=== PATIENT | male | born 1960 | race African-American/Black ===

== ENCOUNTER 2017-07-06 20:03 | Emergency (ER) | payer OTHER ==
[~2017-07-06] VITALS: Ht 170.2 cm; Wt 82.5 kg
[2017-07-06 20:23] LABS: HEMATOCRIT 32.4 % (38.0-50.0); MCH 26.6 PG (29.0-34.0); MCHC 32.7 G/DL (30.0-36.0); MCV 81.4 FL (86-99); MEAN PLAT.VOLUME 9.4 uM^3 (9.0-12.4); NRBC (%) 1.2 /100 WBC (0-0); PLATELET COUNT 381 K/uL (156-360); RBC DIS.WIDTH-CV 14.5 % (11.8-14.6); RBC DIS.WIDTH-SD 42.2 % (39-53); RED BLOOD COUNT 3.98 M/uL (4.00-5.50); WHITE BLOOD COUNT 12.5 K/uL (4.1-10.2)
[2017-07-06 20:51] LABS: TROP-I INTERPRETATION NEGATIVE; TROPONIN-I < 0.01 ng/mL (0.0-0.30)
[2017-07-06 21:07] LABS: CHLORIDE 104 mEq/L (99-109); POTASSIUM 3.9 mEq/L (3.7-5.4); SODIUM 137 mEq/L (136-147)
[2017-07-06 21:09] LABS: GLUCOSE 177 mg/dL (70-99)
[2017-07-06 21:10] LABS: ANION GAP 15 MEQ/L (2-14)
[2017-07-06 21:13] LABS: GFR ESTIMATE (CALCULATED) > 59 mL/min/; UREA NITROGEN (BUN) 30 mg/dL (9-23)
[2017-07-07 01:14] VITALS: BP 125/90
== END 2017-07-07 01:16 | disposition short-term general hospital (02) ==
LOC: EDBD 20:03 → EME 20:03
DX: I50.9 Heart failure, unspecified (principal); R00.0 Tachycardia, unspecified; Z87.891 Personal history of nicotine dependence
CPT/HCPCS: 71020; 80048; 83880; 84484; 85027; 93005; 99281; 99285; J1940

== ENCOUNTER 2017-12-04 23:40 | Inpatient (IN) | payer OTHER ==
[~2017-12-04] VITALS: Ht 170.2 cm; Wt 72.5 kg
[2017-12-05 00:57] LABS: BASOPHIL (%) 0.5 % (0-1); EOSINOPHIL (%) 0.5 % (0-5); HEMOGLOBIN 14.1 G/DL (12.5-16.6); IMMATURE GRANULOCYTE (%) 0.5 % (0.0-0.7); LYMPHOCYTE (%) 11.4 % (15-42); LYMPHOCYTE COUNT 0.9 K/uL (1.0-2.8); MCH 25.2 PG (29.0-34.0); MCHC 32.8 G/DL (30.0-36.0); MCV 76.9 FL (86-99); MONOCYTE (%) 7.3 % (3-12); MONOCYTE COUNT 0.6 K/uL (0-0.8); NEUTROPHIL (%) 79.8 % (45-76); NEUTROPHIL COUNT 6.2 K/uL (1.8-6.4); PLATELET COUNT 355 K/uL (156-360); RBC DIS.WIDTH-CV 14.6 % (11.8-14.6); RBC DIS.WIDTH-SD 40.8 % (39-53); RED BLOOD COUNT 5.59 M/uL (4.00-5.50); WHITE BLOOD COUNT 7.8 K/uL (4.1-10.2)
[2017-12-05 01:11] LABS: CHLORIDE 105 mEq/L (99-109); POTASSIUM 3.9 mEq/L (3.7-5.4); SODIUM 138 mEq/L (136-147)
[2017-12-05 01:12] LABS: GLUCOSE 87 mg/dL (70-99)
[2017-12-05 01:15] LABS: ERTH.SED.RATE 66 MM/HR (0-20)
[2017-12-05 01:16] LABS: CREATININE 0.8 mg/dL (0.6-1.3); GFR ESTIMATE (CALCULATED) > 59 mL/min/ (58.99-99999)
[2017-12-05 01:17] LABS: UREA NITROGEN (BUN) 10 mg/dL (9-23)
[2017-12-05 01:19] LABS: CREATINE KINASE 214 IU/L (1-294)
[2017-12-05 01:22] LABS: TROP-I INTERPRETATION NEGATIVE; TROPONIN-I < 0.01 ng/mL (0.0-0.30)
[2017-12-05 01:41] LABS: C-REACTIVE PROTEIN 34.4 MG/L (0-10)
[2017-12-05 09:14] LABS: TROP-I INTERPRETATION NEGATIVE; TROPONIN-I < 0.01 ng/mL (0.0-0.30)
[2017-12-05 15:02] LABS: TROP-I INTERPRETATION NEGATIVE; TROPONIN-I 0.01 ng/mL (0.0-0.30)
[2017-12-05 17:24] VITALS: BP 135/92
[2017-12-05 19:20] VITALS: BP 146/96
[2017-12-05 23:57] VITALS: BP 121/82
[2017-12-06 03:59] VITALS: BP 133/77
[2017-12-06 07:06] VITALS: BP 121/72
[2017-12-06 08:09] LABS: CHLORIDE 101 MEQ/L (99-109); GFR ESTIMATE (CALCULATED) > 59 mL/min/ (58.99-99999); GLUCOSE 129 mg/dL (70-99); POTASSIUM 4.5 MEQ/L (3.7-5.4); SODIUM 139 MEQ/L (136-147)
[2017-12-06 08:10] LABS: UREA NITROGEN (BUN) 22 mg/dL (9-23)
[2017-12-06 09:56] LABS: INTER. NORMALIZED RATIO 1.3
[2017-12-06 10:05] LABS: PTT 33.9 SEC (25-37)
[2017-12-06 10:59] VITALS: BP 134/83
[2017-12-06 14:43] LABS: TYPE OF FLUID THORACENTESIS
[2017-12-06 14:58] LABS: APPEARANCE SL. HAZY-YELLOW; BODY FLUID RBC'S 3000 /MM^3 (0-100); BODY FLUID WBC'S 568 /MM^3 (0-500)
[2017-12-06 15:05] VITALS: BP 97/71
[2017-12-06 15:21] LABS: BODY FLUID EOSINOPHILS 0 % (0-25); MONONUCLEAR WBC'S 54 %; POLYNUCLEAR WBC'S 46 % (0-25)
[2017-12-06 15:30] LABS: BODY FLUID GLUCOSE 143 MG/DL; BODY FLUID LDH 197 IU/L; BODY FLUID PROTEIN 5.1 G/DL
[2017-12-06 19:39] VITALS: BP 111/76
[2017-12-07 00:16] VITALS: BP 124/77
[2017-12-07 03:45] VITALS: BP 133/83
[2017-12-07 08:07] VITALS: BP 128/86
[2017-12-07 08:14] LABS: ALBUMIN 3.3 G/DL (3.2-4.8); ALKALINE PHOSPHATASE 85 IU/L (3-129); ALT (GPT) 20 IU/L (3-49); AST (GOT) 29 IU/L (2-34); CHLORIDE 102 MEQ/L (99-109); CREATININE 1.2 MG/DL (0.6-1.3); GFR ESTIMATE (CALCULATED) > 59 mL/min/ (58.99-99999); POTASSIUM 4.3 MEQ/L (3.7-5.4); SODIUM 142 MEQ/L (136-147); TOTAL BILIRUBIN 0.4 MG/DL (0.0-1.0); TOTAL PROTEIN 6.9 G/DL (6.4-8.3); UREA NITROGEN (BUN) 26 mg/dL (9-23)
[2017-12-07 08:20] LABS: GLUCOSE 88 mg/dL (70-99)
[2017-12-07 08:34] LABS: LACTATE DEHYDROGENASE 232 IU/L (20-246)
[2017-12-07 08:43] LABS: CARCINOEMBR.ANTIGEN 1.3 NG/ML
[2017-12-07 11:55] VITALS: BP 109/73
[2017-12-07 16:55] VITALS: BP 110/68
[2017-12-07 23:34] VITALS: BP 124/89
[2017-12-08 04:28] LABS: BODY FLUID PH 7.8 (())
[2017-12-08 07:27] VITALS: BP 121/80
[2017-12-08 15:50] VITALS: BP 108/93
[2017-12-08 23:35] VITALS: BP 118/70
[2017-12-09 07:58] VITALS: BP 128/80
[2017-12-09 15:18] VITALS: BP 112/74
[2017-12-10 00:09] VITALS: BP 113/79
[2017-12-10 07:36] LABS: HEMATOCRIT 41.2 % (38.0-50.0); HEMOGLOBIN 12.8 G/DL (12.5-16.6); MCH 24.3 PG (29.0-34.0); MCHC 31.1 G/DL (30.0-36.0); MCV 78.3 FL (86-99); PLATELET COUNT 357 K/uL (156-360); RBC DIS.WIDTH-CV 14.6 % (11.8-14.6); RBC DIS.WIDTH-SD 41.1 % (39-53); RED BLOOD COUNT 5.26 M/uL (4.00-5.50)
[2017-12-10 07:41] VITALS: BP 127/84
[2017-12-10 08:02] LABS: CHLORIDE 98 MEQ/L (99-109); CREATININE 0.9 MG/DL (0.6-1.3); GFR ESTIMATE (CALCULATED) > 59 mL/min/ (58.99-99999); GLUCOSE 120 mg/dL (70-99); MAGNESIUM 2.1 mg/dl (1.3-2.7); POTASSIUM 4.4 MEQ/L (3.7-5.4); SODIUM 136 MEQ/L (136-147); UREA NITROGEN (BUN) 18 mg/dL (9-23)
[2017-12-10 15:47] VITALS: BP 131/79
[2017-12-11 00:10] VITALS: BP 119/70
[2017-12-11 07:48] VITALS: BP 125/83
[2017-12-11 16:27] VITALS: BP 146/83
[2017-12-11 19:39] VITALS: BP 122/79
[2017-12-11 23:53] VITALS: BP 122/73
[2017-12-12 07:23] VITALS: BP 135/83
[2017-12-12 09:13] LABS: HEMATOCRIT 39.7 % (38.0-50.0); HEMOGLOBIN 12.6 G/DL (12.5-16.6); MCH 24.5 PG (29.0-34.0); MCHC 31.7 G/DL (30.0-36.0); MCV 77.1 FL (86-99); PLATELET COUNT 344 K/uL (156-360); RBC DIS.WIDTH-CV 14.4 % (11.8-14.6); RBC DIS.WIDTH-SD 40.3 % (39-53); RED BLOOD COUNT 5.15 M/uL (4.00-5.50); WHITE BLOOD COUNT 8.5 K/uL (4.1-10.2)
[2017-12-12 09:37] LABS: CHLORIDE 101 MEQ/L (99-109); CREATININE 0.8 MG/DL (0.6-1.3); GFR ESTIMATE (CALCULATED) > 59 mL/min/ (58.99-99999); GLUCOSE 93 mg/dL (70-99); POTASSIUM 4.5 MEQ/L (3.7-5.4); SODIUM 138 MEQ/L (136-147); UREA NITROGEN (BUN) 14 mg/dL (9-23)
[2017-12-12 15:53] VITALS: BP 118/71
[2017-12-12 21:23] VITALS: BP 117/76
[2017-12-12 23:57] VITALS: BP 122/81
[2017-12-13 07:46] VITALS: BP 125/82
[2017-12-13 16:21] VITALS: BP 127/71
[2017-12-14 00:12] VITALS: BP 123/74
[2017-12-14 07:38] VITALS: BP 116/74
[2017-12-14 16:04] VITALS: BP 129/80
[2017-12-14 23:30] VITALS: BP 116/72
[2017-12-15 07:30] VITALS: BP 113/78
[2017-12-15 15:56] VITALS: BP 124/69
[2017-12-15 21:43] LABS: A/G RATIO 0.9 (1.1-1.8); ALBUMIN 3.1 G/DL (3.4-5.0); GLOBULINS 3.5 G/DL (2.3-3.5); TOTAL PROTEIN 6.6 G/DL (6.4-8.2)
[2017-12-16] VITALS: BP 123/73
[2017-12-16 06:47] LABS: BASOPHIL (%) 0.6 % (0-1); BASOPHIL COUNT 0.1 K/uL (0-0.1); EOSINOPHIL (%) 0.9 % (0-5); EOSINOPHIL COUNT 0.1 K/uL (0-0.3); HEMATOCRIT 35.7 % (38.0-50.0); HEMOGLOBIN 11.2 G/DL (12.5-16.6); IMMATURE GRANULOCYTE (%) 0.4 % (0.0-0.7); LYMPHOCYTE (%) 11.6 % (15-42); LYMPHOCYTE COUNT 0.9 K/uL (1.0-2.8); MCH 24.3 PG (29.0-34.0); MCHC 31.4 G/DL (30.0-36.0); MCV 77.6 FL (86-99); MONOCYTE (%) 9.6 % (3-12); MONOCYTE COUNT 0.8 K/uL (0-0.8); NEUTROPHIL (%) 76.9 % (45-76); NEUTROPHIL COUNT 6.2 K/uL (1.8-6.4); PLATELET COUNT 407 K/uL (156-360); RBC DIS.WIDTH-CV 14.1 % (11.8-14.6); RBC DIS.WIDTH-SD 39.8 % (39-53)
[2017-12-16 07:26] LABS: ALBUMIN 2.9 G/DL (3.2-4.8); ALKALINE PHOSPHATASE 87 IU/L (3-129); ALT (GPT) 50 IU/L (3-49); AST (GOT) 42 IU/L (2-34); CHLORIDE 101 MEQ/L (99-109); CREATININE 0.9 MG/DL (0.6-1.3); GFR ESTIMATE (CALCULATED) > 59 mL/min/ (58.99-99999); GLUCOSE 97 mg/dL (70-99); POTASSIUM 4.5 MEQ/L (3.7-5.4); SODIUM 139 MEQ/L (136-147); TOTAL BILIRUBIN 0.3 MG/DL (0.0-1.0); UREA NITROGEN (BUN) 16 mg/dL (9-23)
[2017-12-16 08:27] VITALS: BP 127/83
[2017-12-16 15:58] VITALS: BP 125/80
[2017-12-17 00:16] VITALS: BP 109/63
[2017-12-17 06:27] LABS: BASOPHIL (%) 0.6 % (0-1); BASOPHIL COUNT 0.1 K/uL (0-0.1); EOSINOPHIL (%) 0.6 % (0-5); EOSINOPHIL COUNT 0.1 K/uL (0-0.3); HEMATOCRIT 39.6 % (38.0-50.0); HEMOGLOBIN 12.2 G/DL (12.5-16.6); IMMATURE GRANULOCYTE (%) 0.7 % (0.0-0.7); LYMPHOCYTE (%) 9.9 % (15-42); LYMPHOCYTE COUNT 0.9 K/uL (1.0-2.8); MCHC 30.8 G/DL (30.0-36.0); MCV 77.8 FL (86-99); MONOCYTE (%) 9.7 % (3-12); MONOCYTE COUNT 0.9 K/uL (0-0.8); NEUTROPHIL (%) 78.5 % (45-76); PLATELET COUNT 435 K/uL (156-360); RBC DIS.WIDTH-CV 14.1 % (11.8-14.6); RBC DIS.WIDTH-SD 39.8 % (39-53); RED BLOOD COUNT 5.09 M/uL (4.00-5.50)
[2017-12-17 06:49] LABS: CHLORIDE 99 MEQ/L (99-109); GFR ESTIMATE (CALCULATED) > 59 mL/min/ (58.99-99999); GLUCOSE 105 mg/dL (70-99); POTASSIUM 4.7 MEQ/L (3.7-5.4); SODIUM 138 MEQ/L (136-147); UREA NITROGEN (BUN) 15 mg/dL (9-23)
[2017-12-17 07:32] VITALS: BP 122/73
[2017-12-17 16:08] VITALS: BP 124/71
[2017-12-18] VITALS: BP 112/71
[2017-12-18 06:32] LABS: BASOPHIL (%) 0.5 % (0-1); EOSINOPHIL (%) 0.7 % (0-5); EOSINOPHIL COUNT 0.1 K/uL (0-0.3); HEMATOCRIT 38.8 % (38.0-50.0); HEMOGLOBIN 12.2 G/DL (12.5-16.6); IMMATURE GRANULOCYTE (%) 0.3 % (0.0-0.7); LYMPHOCYTE (%) 10.8 % (15-42); LYMPHOCYTE COUNT 0.8 K/uL (1.0-2.8); MCH 24.4 PG (29.0-34.0); MCHC 31.4 G/DL (30.0-36.0); MCV 77.6 FL (86-99); MONOCYTE (%) 8.8 % (3-12); MONOCYTE COUNT 0.6 K/uL (0-0.8); NEUTROPHIL (%) 78.9 % (45-76); NEUTROPHIL COUNT 5.8 K/uL (1.8-6.4); PLATELET COUNT 427 K/uL (156-360); RBC DIS.WIDTH-CV 14.3 % (11.8-14.6); RBC DIS.WIDTH-SD 40.1 % (39-53); WHITE BLOOD COUNT 7.3 K/uL (4.1-10.2)
[2017-12-18 07:07] LABS: CHLORIDE 100 MEQ/L (99-109); CREATININE 0.8 MG/DL (0.6-1.3); GFR ESTIMATE (CALCULATED) > 59 mL/min/ (58.99-99999); GLUCOSE 94 mg/dL (70-99); POTASSIUM 4.7 MEQ/L (3.7-5.4); SODIUM 137 MEQ/L (136-147); UREA NITROGEN (BUN) 16 mg/dL (9-23)
[2017-12-18 07:46] VITALS: BP 122/62
[2017-12-18 16:25] VITALS: BP 109/72
[2017-12-19 00:19] VITALS: BP 103/62
[2017-12-19 07:03] LABS: INTER. NORMALIZED RATIO 1.2
[2017-12-19 07:13] LABS: CHLORIDE 101 MEQ/L (99-109); CREATININE 0.9 MG/DL (0.6-1.3); GFR ESTIMATE (CALCULATED) > 59 mL/min/ (58.99-99999); GLUCOSE 91 mg/dL (70-99); POTASSIUM 4.8 MEQ/L (3.7-5.4); SODIUM 139 MEQ/L (136-147); UREA NITROGEN (BUN) 17 mg/dL (9-23)
[2017-12-19 07:19] LABS: BASOPHIL (%) 0.5 % (0-1); EOSINOPHIL (%) 0.9 % (0-5); EOSINOPHIL COUNT 0.1 K/uL (0-0.3); HEMATOCRIT 39.8 % (38.0-50.0); HEMOGLOBIN 12.3 G/DL (12.5-16.6); IMMATURE GRANULOCYTE (%) 0.8 % (0.0-0.7); LYMPHOCYTE COUNT 0.9 K/uL (1.0-2.8); MCH 24.3 PG (29.0-34.0); MCHC 30.9 G/DL (30.0-36.0); MCV 78.7 FL (86-99); MONOCYTE (%) 9.4 % (3-12); MONOCYTE COUNT 0.7 K/uL (0-0.8); NEUTROPHIL (%) 76.4 % (45-76); NEUTROPHIL COUNT 5.8 K/uL (1.8-6.4); PLATELET COUNT 446 K/uL (156-360); RBC DIS.WIDTH-CV 14.3 % (11.8-14.6); RBC DIS.WIDTH-SD 40.3 % (39-53); RED BLOOD COUNT 5.06 M/uL (4.00-5.50); WHITE BLOOD COUNT 7.5 K/uL (4.1-10.2)
[2017-12-19 08:04] VITALS: BP 106/69
[2017-12-19 14:42] LABS: ALPHA-1 GLOBULIN 0.62 G/DL (0.15-0.40); ALPHA-2 GLOBULIN 1.04 G/DL (0.45-0.85); BETA-GLOBULIN 0.95 G/DL (0.65-1.15); GAMMA-GLOBULIN 1.29 G/DL (0.60-1.35)
[2017-12-19 17:01] LABS: TYPE OF FLUID PLEURAL
[2017-12-19 17:39] LABS: BODY FLUID GLUCOSE 92 MG/DL; BODY FLUID LDH 154 IU/L; BODY FLUID PROTEIN 4.4 G/DL
[2017-12-19 18:14] LABS: APPEARANCE CLOUDY-BLOODY; BODY FLUID EOSINOPHILS 0 % (0-25); BODY FLUID RBC'S 55000 /MM^3 (0-100); BODY FLUID WBC'S 677 /MM^3 (0-500); MONONUCLEAR WBC'S 91 %; POLYNUCLEAR WBC'S 9 % (0-25)
[2017-12-19 23:58] VITALS: BP 115/67
[2017-12-20 06:30] LABS: HEMATOCRIT 39.4 % (38.0-50.0); HEMOGLOBIN 12.2 G/DL (12.5-16.6); MCH 24.4 PG (29.0-34.0); PLATELET COUNT 451 K/uL (156-360); RBC DIS.WIDTH-CV 14.5 % (11.8-14.6); RBC DIS.WIDTH-SD 41.2 % (39-53); RED BLOOD COUNT 4.99 M/uL (4.00-5.50); WHITE BLOOD COUNT 7.6 K/uL (4.1-10.2)
[2017-12-20 07:12] VITALS: BP 113/73
[2017-12-20] MEDS ORDERED: ADVAIR HFA120 INHALA IH (12:42)
[2017-12-20] MEDS ORDERED: FERROUS SULFAT325 MG PO (12:42)
[2017-12-20] MEDS ORDERED: LOPRESSOR25 MG PO (12:42)
[2017-12-20] MEDS ORDERED: DUONEB 2.5-0.5 M3 ML AEROSOL (12:42)
[2017-12-20] MEDS ORDERED: SPIRIVA1 INHALATI IH (12:42)
[2017-12-20 15:10] VITALS: BP 107/76
[2017-12-20 19:43] VITALS: BP 161/83
== END 2017-12-20 15:34 | DRG 186 ==
LOC: EME 23:40 → EDOF 12-05 07:38 → 5SOUTH 12-05 07:38 → ENRESERV 12-05 07:39 → 5SOUTH 12-05 17:03 → ENPENDDIS 12-20 → 5SOUTH 12-20 15:34
PROVIDERS: Emergency Medicine; Hospitalist; Internal Medicine; Internal Medicine Hematology & Oncology; Internal Medicine Pulmonary Disease; Radiology Diagnostic Radiology; Student in an Organized Health Care Education/Training Program
PROC: 0W993ZZ Drainage of Right Pleural Cavity, Percutaneous Approach (ICD-10-PCS; principal; 2017-12-08)
PROC: 0W993ZZ Drainage of Right Pleural Cavity, Percutaneous Approach (ICD-10-PCS; 2017-12-12)
PROC: 0QJY3ZZ Inspection of Lower Bone, Percutaneous Approach (ICD-10-PCS; 2017-12-12)
DX: J90 Pleural effusion, not elsewhere classified (principal); J18.9 Pneumonia, unspecified organism; C79.51 Secondary malignant neoplasm of bone; J96.01 Acute respiratory failure with hypoxia; C78.00 Secondary malignant neoplasm of unspecified lung; R13.10 Dysphagia, unspecified; J98.11 Atelectasis; Z53.8 Procedure and treatment not carried out for other reasons; D50.9 Iron deficiency anemia, unspecified; K21.9 Gastro-esophageal reflux disease without esophagitis; Z87.891 Personal history of nicotine dependence
CPT/HCPCS: 71045; 71250; 71260; 71275; 74176; 74177; 74220; 76942; 77012; 80048; 80053; 82105 90; 82378; 82550; 82945; 83615; 83615 91; 83735; 83880; 83883 90; 83986 90; 84157; 84165; 84484; 85025; 85027; 85610; 85651; 85730; 86140; 86300 90; 86301 90; 86334; 87040; 87070; 87075; 87116; 87205; 87206; 88108; 88305; 89051; 93005; 93306; 94640; 94640 76; 94760; 94799; 99202; 99281; 99284; G0103; J0295; J0456; J0696; J1650; J1940; J3010; J7050

== ENCOUNTER → 2018-02-06 | Outpatient (CLI) | payer OTHER ==
[~2018-02-06] MED LIST: ADVAIR HFA120 INHALA IH; BENADRYL25 MG PO; DEXAMETHASONE4 MG PO; DUONEB 2.5-0.5 M3 ML AEROSOL; FERROUS SULFAT325 MG PO; FUROSEMIDE40 MG PO; GUAIFENESIN200 M2 PO; LASIX40 MG PO; LOPRESSOR25 MG PO; MEDROL DOSEPAK4 MG PO; ONDANSETRON HCL4 MG PO; PEPCID20 MG PO; SPIRIVA1 INHALATI IH; TRAMADOL HCL50 MG PO; ZANTAC150 MG PO
[2018-02-06 10:53] LABS: BASOPHIL (%) 0.4 % (0-1); EOSINOPHIL (%) 0.6 % (0-5); HEMATOCRIT 40.6 % (38.0-50.0); HEMOGLOBIN 12.8 G/DL (12.5-16.6); IMMATURE GRANULOCYTE (%) 0.2 % (0.0-0.7); LYMPHOCYTE (%) 9.7 % (15-42); LYMPHOCYTE COUNT 0.5 K/uL (1.0-2.8); MCH 24.7 PG (29.0-34.0); MCHC 31.5 G/DL (30.0-36.0); MCV 78.2 FL (86-99); MONOCYTE (%) 9.7 % (3-12); MONOCYTE COUNT 0.5 K/uL (0-0.8); NEUTROPHIL (%) 79.4 % (45-76); NEUTROPHIL COUNT 3.9 K/uL (1.8-6.4); PLATELET COUNT 296 K/uL (156-360); RBC DIS.WIDTH-CV 17.2 % (11.8-14.6); RBC DIS.WIDTH-SD 46.9 % (39-53); RED BLOOD COUNT 5.19 M/uL (4.00-5.50); WHITE BLOOD COUNT 4.9 K/uL (4.1-10.2)
[2018-02-06 11:14] LABS: ALBUMIN 2.8 G/DL (3.2-4.8); ALKALINE PHOSPHATASE 116 IU/L (3-129); ALT (GPT) 22 IU/L (3-49); AST (GOT) 32 IU/L (2-34); CHLORIDE 99 MEQ/L (99-109); CREATININE 0.6 MG/DL (0.6-1.3); GFR ESTIMATE (CALCULATED) > 59 mL/min/ (58.99-99999); GLUCOSE 106 mg/dL (70-99); POTASSIUM 4.6 MEQ/L (3.7-5.4); SODIUM 138 MEQ/L (136-147); TOTAL BILIRUBIN 0.6 MG/DL (0.0-1.0); TOTAL PROTEIN 6.1 G/DL (6.4-8.3); UREA NITROGEN (BUN) 10 mg/dL (9-23)
== END | disposition home or self-care (01) ==
LOC: AMB 09:30
PROVIDERS: Internal Medicine Hematology & Oncology
DX: C79.51 Secondary malignant neoplasm of bone (principal)
CPT/HCPCS: 80053; 85025; 99212

== ENCOUNTER 2018-02-11 15:49 | Inpatient (IN) | payer OTHER ==
[~2018-02-11] VITALS: Ht 167.6 cm; Wt 74.8 kg
[~2018-02-11 15:49] MED LIST changes: -BENADRYL25 MG PO; -DEXAMETHASONE4 MG PO; -GUAIFENESIN200 M2 PO; -LASIX40 MG PO; -ONDANSETRON HCL4 MG PO; -ZANTAC150 MG PO
[2018-02-12 09:12] LABS: HEMATOCRIT 42.4 % (38.0-50.0); HEMOGLOBIN 13.2 G/DL (12.5-16.6); MCH 24.4 PG (29.0-34.0); MCHC 31.1 G/DL (30.0-36.0); MCV 78.4 FL (86-99); PLATELET COUNT 438 K/uL (156-360); RBC DIS.WIDTH-CV 17.3 % (11.8-14.6); RBC DIS.WIDTH-SD 47.5 % (39-53); RED BLOOD COUNT 5.41 M/uL (4.00-5.50); WHITE BLOOD COUNT 6.1 K/uL (4.1-10.2)
[2018-02-12 09:15] VITALS: BP 114/81
[2018-02-12 09:17] LABS: INTER. NORMALIZED RATIO 1.3
[2018-02-12 09:20] LABS: PTT 33.3 SEC (25-37)
[2018-02-12 09:45] LABS: CREATININE 0.8 MG/DL (0.6-1.3); GFR ESTIMATE (CALCULATED) > 59 mL/min/ (58.99-99999); GLUCOSE 114 mg/dL (70-99); POTASSIUM 4.2 MEQ/L (3.7-5.4); SODIUM 143 MEQ/L (136-147); UREA NITROGEN (BUN) 11 mg/dL (9-23)
[2018-02-12 09:46] LABS: ALBUMIN 2.8 G/DL (3.2-4.8); ALKALINE PHOSPHATASE 113 IU/L (3-129); ALT (GPT) 17 IU/L (3-49); AST (GOT) 32 IU/L (2-34); CHLORIDE 101 MEQ/L (99-109); TOTAL BILIRUBIN 0.5 MG/DL (0.0-1.0); TOTAL PROTEIN 6.1 G/DL (6.4-8.3)
[2018-02-12] MEDS ORDERED: LASIX40 MG PO (11:10)
[2018-02-12] MEDS ORDERED: PEPCID20 MG PO (11:11)
[2018-02-12] MEDS ORDERED: GUAIFENESIN200 M2 PO (11:13)
[2018-02-12 15:30] VITALS: BP 113/80
[2018-02-12] MEDS ORDERED: DEXAMETHASONE4 MG PO (16:07)
[2018-02-12] MEDS ORDERED: ZANTAC150 MG PO (16:07)
[2018-02-12] MEDS ORDERED: BENADRYL25 MG PO (16:08)
[2018-02-12] MEDS ORDERED: ONDANSETRON HCL4 MG PO (16:09)
[2018-02-12 21:12] VITALS: BP 128/76
[2018-02-12 23:58] VITALS: BP 142/72
[2018-02-13 12:01] VITALS: BP 118/72
[2018-02-13 16:00] VITALS: BP 122/84
[2018-02-13 21:20] VITALS: BP 132/85
[2018-02-14] VITALS (13 sets, daily range): BP systolic 70–173; BP diastolic 58–120
[2018-02-14 17:14] LABS: BASE EXCESS 10.1 mEq/L (-3 to +3); BICARBONATE 43.4 mEq/L (22-26); CARBOXY HGB 2.2 % (0-5); METHEMOGLOBIN 1.5 % (0-1.5)
[2018-02-14 17:15] LABS: DEVICE HHFNC; O2 FLOW 15 L/MIN; PCO2 119 mm Hg (35-45); PO2 46 mm Hg (80-100); SITE LR; TOTAL RESP RATE 50 resp/min
[2018-02-14 17:16] LABS: pH 7.17 (7.35-7.45)
[2018-02-15] VITALS (27 sets, daily range): BP systolic 75–133; BP diastolic 57–81
[2018-02-15 00:08] LABS: BICARBONATE 38.1 mEq/L (22-26); CARBOXY HGB 1.6 % (0-5); COMMENTS - BLOOD GASES C+A+; DEVICE VENTILATOR; FI02 100 %; MECHANICAL RATE 22 resp/min; METHEMOGLOBIN 1.5 % (0-1.5); MODE A/C; PCO2 63 mm Hg (35-45); PEEP 5 CM/H20; PO2 321 mm Hg (80-100); SITE RB; TIDAL VOLUME 450 ML; TOTAL RESP RATE 22 resp/min; pH 7.39 (7.35-7.45)
[2018-02-15 08:16] LABS: APPEARANCE SL.HAZY ((CLEAR)); BILIRUBIN NEGATIVE; BLOOD SMALL; COLOR YELLOW ((YELLOW)); GLUCOSE (STRIP) NEGATIVE; KETONES NEGATIVE; LEUKOCYTES NEGATIVE; NITRITE NEGATIVE; PROTEIN (STRIP) 30; SPECIFIC GRAVITY 1.021 (1.000-1.030); UROBILINOGEN 0.2 MG/DL (0.2-1.0)
[2018-02-15 08:47] LABS: BACTERIA NONE SEEN /HPF; EPITHELIAL CELLS NONE SEEN /HPF; HYALINE CASTS 20-30 /LPF; MUCUS TRACE /LPF; RED BLOOD CELLS 0-5 /HPF (0-5); UCUL ADDED? NO; WHITE BLOOD CELLS 0-5 /HPF (0-5)
[2018-02-15 09:51] LABS: HEMATOCRIT 36.9 % (38.0-50.0); HEMOGLOBIN 10.8 G/DL (12.5-16.6); MCH 24.1 PG (29.0-34.0); MCHC 29.3 G/DL (30.0-36.0); MCV 82.2 FL (86-99); NRBC (%) 0.4 /100 WBC (0-0); RBC DIS.WIDTH-CV 16.8 % (11.8-14.6); RBC DIS.WIDTH-SD 49.6 % (39-53); RED BLOOD COUNT 4.49 M/uL (4.00-5.50); WHITE BLOOD COUNT 8.3 K/uL (4.1-10.2)
[2018-02-15 10:04] LABS: CHLORIDE 100 MEQ/L (99-109); CREATININE 1.2 MG/DL (0.6-1.3); GFR ESTIMATE (CALCULATED) > 59 mL/min/ (58.99-99999); GLUCOSE 107 mg/dL (70-99); POTASSIUM 4.2 MEQ/L (3.7-5.4); SODIUM 144 MEQ/L (136-147)
[2018-02-15 10:11] LABS: UREA NITROGEN (BUN) 21 mg/dL (9-23)
[2018-02-15 10:21] LABS: BASOPHIL (%) 0.1 % (0-1); EOSINOPHIL (%) 0.1 % (0-5); IMMATURE GRANULOCYTE (%) 0.5 % (0.0-0.7); LYMPHOCYTE COUNT 0.5 K/uL (1.0-2.8); MONOCYTE (%) 13.2 % (3-12); MONOCYTE COUNT 1.1 K/uL (0-0.8); NEUTROPHIL (%) 80.1 % (45-76); NEUTROPHIL COUNT 6.6 K/uL (1.8-6.4); PLAT.SUFFICIENCY INCREASED; PLATELET CLUMPS PRESENT - PLATELET COUNT APPEARS INCREASED
[2018-02-15 10:22] LABS: PLATELET COUNT UNABLE TO REPORT K/uL (156-360)
[2018-02-16] VITALS (22 sets, daily range): BP systolic 77–118; BP diastolic 62–93
[2018-02-16 05:54] LABS: BASOPHIL (%) 0.4 % (0-1); EOSINOPHIL (%) 0.1 % (0-5); HEMATOCRIT 35.5 % (38.0-50.0); HEMOGLOBIN 10.8 G/DL (12.5-16.6); IMMATURE GRANULOCYTE (%) 0.4 % (0.0-0.7); LYMPHOCYTE (%) 11.8 % (15-42); LYMPHOCYTE COUNT 0.8 K/uL (1.0-2.8); MCH 24.2 PG (29.0-34.0); MCHC 30.4 G/DL (30.0-36.0); MCV 79.6 FL (86-99); MONOCYTE (%) 13.2 % (3-12); MONOCYTE COUNT 0.9 K/uL (0-0.8); NEUTROPHIL (%) 74.1 % (45-76); NEUTROPHIL COUNT 4.9 K/uL (1.8-6.4); NRBC (%) 0.3 /100 WBC (0-0); PLATELET COUNT 350 K/uL (156-360); RBC DIS.WIDTH-CV 17.3 % (11.8-14.6); RBC DIS.WIDTH-SD 49.8 % (39-53); RED BLOOD COUNT 4.46 M/uL (4.00-5.50); WHITE BLOOD COUNT 6.7 K/uL (4.1-10.2)
[2018-02-16 06:14] LABS: CHLORIDE 105 MEQ/L (99-109); CREATININE 1.1 MG/DL (0.6-1.3); GFR ESTIMATE (CALCULATED) > 59 mL/min/ (58.99-99999); GLUCOSE 105 mg/dL (70-99); POTASSIUM 3.6 MEQ/L (3.7-5.4); SODIUM 145 MEQ/L (136-147); UREA NITROGEN (BUN) 23 mg/dL (9-23)
[2018-02-16 11:14] LABS: INTER. NORMALIZED RATIO 1.4
[2018-02-16 11:17] LABS: PTT 35.8 SEC (25-37)
[2018-02-17] VITALS (20 sets, daily range): BP systolic 100–131; BP diastolic 72–86
[2018-02-17 06:58] LABS: BASOPHIL (%) 0.3 % (0-1); EOSINOPHIL (%) 0.2 % (0-5); HEMATOCRIT 36.8 % (38.0-50.0); HEMOGLOBIN 10.7 G/DL (12.5-16.6); IMMATURE GRANULOCYTE (%) 0.5 % (0.0-0.7); LYMPHOCYTE (%) 7.8 % (15-42); LYMPHOCYTE COUNT 0.5 K/uL (1.0-2.8); MCH 24.2 PG (29.0-34.0); MCHC 29.1 G/DL (30.0-36.0); MCV 83.1 FL (86-99); MONOCYTE (%) 13.1 % (3-12); MONOCYTE COUNT 0.9 K/uL (0-0.8); NEUTROPHIL (%) 78.1 % (45-76); NEUTROPHIL COUNT 5.2 K/uL (1.8-6.4); PLATELET COUNT 353 K/uL (156-360); RBC DIS.WIDTH-SD 53.6 % (39-53); RED BLOOD COUNT 4.43 M/uL (4.00-5.50); WHITE BLOOD COUNT 6.7 K/uL (4.1-10.2)
[2018-02-17 07:39] LABS: CHLORIDE 110 MEQ/L (99-109); CREATININE 1.1 MG/DL (0.6-1.3); GFR ESTIMATE (CALCULATED) > 59 mL/min/ (58.99-99999); GLUCOSE 138 mg/dL (70-99); SODIUM 144 MEQ/L (136-147); UREA NITROGEN (BUN) 26 mg/dL (9-23)
[2018-02-17 07:43] LABS: POTASSIUM 4.4 MEQ/L (3.7-5.4)
[2018-02-18] VITALS (20 sets, daily range): BP systolic 92–123; BP diastolic 48–87
[2018-02-18 05:38] LABS: CHLORIDE 113 mEq/L (99-109); POTASSIUM 4.4 mEq/L (3.7-5.4); SODIUM 146 mEq/L (136-147)
[2018-02-18 05:39] LABS: MAGNESIUM 1.8 mg/dL (1.3-2.7)
[2018-02-18 05:40] LABS: BASOPHIL (%) 0.3 % (0-1); EOSINOPHIL (%) 0 % (0-5); GLUCOSE 159 mg/dL (70-99); HEMATOCRIT 36.2 % (38.0-50.0); HEMOGLOBIN 10.5 G/DL (12.5-16.6); IMMATURE GRANULOCYTE (%) 0.4 % (0.0-0.7); LYMPHOCYTE (%) 3.9 % (15-42); LYMPHOCYTE COUNT 0.3 K/uL (1.0-2.8); MCH 24.3 PG (29.0-34.0); MCV 83.8 FL (86-99); MONOCYTE (%) 10.3 % (3-12); MONOCYTE COUNT 0.7 K/uL (0-0.8); NEUTROPHIL (%) 85.1 % (45-76); NEUTROPHIL COUNT 5.9 K/uL (1.8-6.4); PLATELET COUNT 356 K/uL (156-360); RBC DIS.WIDTH-CV 18.5 % (11.8-14.6); RBC DIS.WIDTH-SD 55.2 % (39-53); RED BLOOD COUNT 4.32 M/uL (4.00-5.50); WHITE BLOOD COUNT 6.9 K/uL (4.1-10.2)
[2018-02-18 05:44] LABS: CREATININE 1.1 mg/dL (0.6-1.3); GFR ESTIMATE (CALCULATED) > 59 mL/min/ (58.99-99999)
[2018-02-18 05:45] LABS: UREA NITROGEN (BUN) 26 mg/dL (9-23)
[2018-02-18 06:57] LABS: VANCOMYCIN, TROUGH 21.2 MCG/ML (10-20)
[2018-02-18 18:38] LABS: CHLORIDE 112 MEQ/L (99-109); CREATININE 1.3 MG/DL (0.6-1.3); GFR ESTIMATE (CALCULATED) > 59 mL/min/ (58.99-99999); GLUCOSE 135 mg/dL (70-99); POTASSIUM 4.3 MEQ/L (3.7-5.4); SODIUM 146 MEQ/L (136-147); UREA NITROGEN (BUN) 27 mg/dL (9-23)
[2018-02-19] VITALS (23 sets, daily range): BP systolic 98–124; BP diastolic 66–88
[2018-02-19 00:53] LABS: CHLORIDE 112 mEq/L (99-109); POTASSIUM 4.7 mEq/L (3.7-5.4); SODIUM 149 mEq/L (136-147)
[2018-02-19 00:54] LABS: GLUCOSE 158 mg/dL (70-99)
[2018-02-19 00:58] LABS: CREATININE 1.4 mg/dL (0.6-1.3); GFR ESTIMATE (CALCULATED) > 59 mL/min/ (58.99-99999)
[2018-02-19 00:59] LABS: UREA NITROGEN (BUN) 28 mg/dL (9-23)
[2018-02-19 05:35] LABS: INTER. NORMALIZED RATIO 1.4
[2018-02-19 05:37] LABS: PTT 32.8 SEC (25-37)
[2018-02-19 06:20] LABS: CHLORIDE 113 MEQ/L (99-109); CREATININE 1.4 MG/DL (0.6-1.3); GFR ESTIMATE (CALCULATED) > 59 mL/min/ (58.99-99999); GLUCOSE 121 mg/dL (70-99); SODIUM 149 MEQ/L (136-147); UREA NITROGEN (BUN) 28 mg/dL (9-23)
[2018-02-19 14:23] LABS: CHLORIDE 110 MEQ/L (99-109); CREATININE 1.4 MG/DL (0.6-1.3); GFR ESTIMATE (CALCULATED) > 59 mL/min/ (58.99-99999); GLUCOSE 122 mg/dL (70-99); POTASSIUM 3.9 MEQ/L (3.7-5.4); SODIUM 150 MEQ/L (136-147); UREA NITROGEN (BUN) 28 mg/dL (9-23)
[2018-02-19 18:40] LABS: CHLORIDE 112 MEQ/L (99-109); CREATININE 1.4 MG/DL (0.6-1.3); GFR ESTIMATE (CALCULATED) > 59 mL/min/ (58.99-99999); GLUCOSE 153 mg/dL (70-99); POTASSIUM 3.9 MEQ/L (3.7-5.4); SODIUM 151 MEQ/L (136-147); UREA NITROGEN (BUN) 30 mg/dL (9-23)
[2018-02-20] VITALS (15 sets, daily range): BP systolic 89–131; BP diastolic 69–94
[2018-02-20 01:02] LABS: CHLORIDE 110 mEq/L (99-109); POTASSIUM 3.8 mEq/L (3.7-5.4); SODIUM 154 mEq/L (136-147)
[2018-02-20 01:04] LABS: GLUCOSE 177 mg/dL (70-99)
[2018-02-20 01:08] LABS: CREATININE 1.5 mg/dL (0.6-1.3); GFR ESTIMATE (CALCULATED) > 59 mL/min/ (58.99-99999); UREA NITROGEN (BUN) 33 mg/dL (9-23)
[2018-02-20 05:52] LABS: ALBUMIN 2.5 G/DL (3.2-4.8); ALKALINE PHOSPHATASE 121 IU/L (3-129); ALT (GPT) 21 IU/L (3-49); AST (GOT) 45 IU/L (2-34); CHLORIDE 110 MEQ/L (99-109); CREATININE 1.5 MG/DL (0.6-1.3); GFR ESTIMATE (CALCULATED) > 59 mL/min/ (58.99-99999); GLUCOSE 157 mg/dL (70-99); POTASSIUM 3.9 MEQ/L (3.7-5.4); SODIUM 152 MEQ/L (136-147); TOTAL BILIRUBIN 0.7 MG/DL (0.0-1.0); TOTAL PROTEIN 5.6 G/DL (6.4-8.3); UREA NITROGEN (BUN) 32 mg/dL (9-23)
[2018-02-20 05:55] LABS: BASE EXCESS 10.5 mEq/L (-3 to +3); BICARBONATE 35.1 mEq/L (22-26); CARBOXY HGB 1.8 % (0-5); COMMENTS - BLOOD GASES C+; DEVICE VENT; FI02 40 %; METHEMOGLOBIN 1.9 % (0-1.5); PCO2 46 mm Hg (35-45); PO2 63 mm Hg (80-100); SITE RR; pH 7.49 (7.35-7.45)
[2018-02-20 05:56] LABS: MECHANICAL RATE 10 resp/min; MODE AC; PEEP 13 CM/H20; TIDAL VOLUME 450 ML; TOTAL RESP RATE 25 resp/min
[2018-02-20 06:02] LABS: BASOPHIL (%) 0.3 % (0-1); EOSINOPHIL (%) 0.1 % (0-5); HEMATOCRIT 34.3 % (38.0-50.0); HEMOGLOBIN 10.2 G/DL (12.5-16.6); IMMATURE GRANULOCYTE (%) 0.6 % (0.0-0.7); LYMPHOCYTE (%) 4.3 % (15-42); LYMPHOCYTE COUNT 0.3 K/uL (1.0-2.8); MCH 23.4 PG (29.0-34.0); MCHC 29.7 G/DL (30.0-36.0); MONOCYTE (%) 11.5 % (3-12); MONOCYTE COUNT 0.9 K/uL (0-0.8); NEUTROPHIL (%) 83.2 % (45-76); NEUTROPHIL COUNT 6.6 K/uL (1.8-6.4); NRBC (%) 0.5 /100 WBC (0-0); PLATELET COUNT 352 K/uL (156-360); RBC DIS.WIDTH-CV 18.6 % (11.8-14.6); RED BLOOD COUNT 4.35 M/uL (4.00-5.50); WHITE BLOOD COUNT 7.9 K/uL (4.1-10.2)
[2018-02-20 06:06] LABS: MCV 78.9 FL (86-99)
[2018-02-20 14:22] LABS: CHLORIDE 110 MEQ/L (99-109); CREATININE 1.5 MG/DL (0.6-1.3); GFR ESTIMATE (CALCULATED) > 59 mL/min/ (58.99-99999); GLUCOSE 158 mg/dL (70-99); POTASSIUM 3.6 MEQ/L (3.7-5.4); SODIUM 151 MEQ/L (136-147); UREA NITROGEN (BUN) 32 mg/dL (9-23)
[2018-02-21] VITALS (19 sets, daily range): BP systolic 100–127; BP diastolic 66–93
[2018-02-21 05:44] LABS: BASOPHIL (%) 0.3 % (0-1); CHLORIDE 108 MEQ/L (99-109); CREATININE 1.3 MG/DL (0.6-1.3); EOSINOPHIL (%) 0.3 % (0-5); GFR ESTIMATE (CALCULATED) > 59 mL/min/ (58.99-99999); GLUCOSE 151 mg/dL (70-99); HEMOGLOBIN 10.4 G/DL (12.5-16.6); IMMATURE GRANULOCYTE (%) 0.8 % (0.0-0.7); LYMPHOCYTE (%) 6.9 % (15-42); LYMPHOCYTE COUNT 0.6 K/uL (1.0-2.8); MAGNESIUM 2.2 mg/dl (1.3-2.7); MCH 23.6 PG (29.0-34.0); MCHC 29.7 G/DL (30.0-36.0); MCV 79.4 FL (86-99); MONOCYTE (%) 12.3 % (3-12); MONOCYTE COUNT 1.1 K/uL (0-0.8); NEUTROPHIL (%) 79.4 % (45-76); NEUTROPHIL COUNT 6.9 K/uL (1.8-6.4); NRBC (%) 0.2 /100 WBC (0-0); PHOSPHORUS 3.5 mg/dL (2.5-4.9); PLATELET COUNT 331 K/uL (156-360); POTASSIUM 4.1 MEQ/L (3.7-5.4); RBC DIS.WIDTH-SD 52.8 % (39-53); RED BLOOD COUNT 4.41 M/uL (4.00-5.50); SODIUM 150 MEQ/L (136-147); UREA NITROGEN (BUN) 32 mg/dL (9-23); WHITE BLOOD COUNT 8.7 K/uL (4.1-10.2)
[2018-02-21 05:51] LABS: BASE EXCESS 9.5 mEq/L (-3 to +3); BICARBONATE 34.8 mEq/L (22-26); CARBOXY HGB 1.9 % (0-5); COMMENTS - BLOOD GASES A+C+; DEVICE VENT; FI02 40 %; MECHANICAL RATE 10 resp/min; METHEMOGLOBIN 1.7 % (0-1.5); MODE A/C; PCO2 50 mm Hg (35-45); PO2 63 mm Hg (80-100); SITE RR; TIDAL VOLUME 450 ML; TOTAL RESP RATE 26 resp/min; pH 7.45 (7.35-7.45)
[2018-02-21 05:52] LABS: PEEP 13 CM/H20
[2018-02-21 13:19] LABS: BICARBONATE 34.5 mEq/L (22-26); CARBOXY HGB 2.1 % (0-5); COMMENTS - BLOOD GASES C+; DEVICE VENT; FI02 60 %; METHEMOGLOBIN 1.4 % (0-1.5); MODE AC; PCO2 57 mm Hg (35-45); PO2 77 mm Hg (80-100); SITE RR; pH 7.39 (7.35-7.45)
[2018-02-21 13:20] LABS: MECHANICAL RATE 20 resp/min; PEEP 10 CM/H20; TIDAL VOLUME 450 ML; TOTAL RESP RATE 24 resp/min
[2018-02-22] VITALS (25 sets, daily range): BP systolic 98–156; BP diastolic 64–89
[2018-02-22 05:31] LABS: BASOPHIL (%) 0.1 % (0-1); EOSINOPHIL (%) 0 % (0-5); HEMATOCRIT 33.5 % (38.0-50.0); IMMATURE GRANULOCYTE (%) 0.8 % (0.0-0.7); LYMPHOCYTE (%) 1.9 % (15-42); LYMPHOCYTE COUNT 0.2 K/uL (1.0-2.8); MCHC 29.9 G/DL (30.0-36.0); MCV 80.5 FL (86-99); MONOCYTE (%) 3.7 % (3-12); MONOCYTE COUNT 0.3 K/uL (0-0.8); NEUTROPHIL (%) 93.5 % (45-76); NEUTROPHIL COUNT 7.8 K/uL (1.8-6.4); NRBC (%) 0.2 /100 WBC (0-0); PLATELET COUNT 300 K/uL (156-360); RBC DIS.WIDTH-CV 19.2 % (11.8-14.6); RBC DIS.WIDTH-SD 54.2 % (39-53); RED BLOOD COUNT 4.16 M/uL (4.00-5.50); WHITE BLOOD COUNT 8.4 K/uL (4.1-10.2)
[2018-02-22 05:56] LABS: CHLORIDE 104 MEQ/L (99-109); CREATININE 1.6 MG/DL (0.6-1.3); GFR ESTIMATE (CALCULATED) 57 mL/min/ (58.99-99999); GLUCOSE 173 mg/dL (70-99); MAGNESIUM 2.4 mg/dl (1.3-2.7); PHOSPHORUS 4.4 mg/dL (2.5-4.9); POTASSIUM 4.7 MEQ/L (3.7-5.4); SODIUM 151 MEQ/L (136-147); UREA NITROGEN (BUN) 44 mg/dL (9-23)
[2018-02-22 12:36] LABS: APPEARANCE SL.HAZY ((CLEAR)); BILIRUBIN NEGATIVE; BLOOD MODERATE; COLOR YELLOW ((YELLOW)); GLUCOSE (STRIP) NEGATIVE; KETONES NEGATIVE; LEUKOCYTES NEGATIVE; NITRITE NEGATIVE; PROTEIN (STRIP) NEGATIVE; SPECIFIC GRAVITY 1.017 (1.000-1.030)
[2018-02-22 12:51] LABS: BACTERIA RARE /HPF; EPITHELIAL CELLS NONE SEEN /HPF; MUCUS TRACE /LPF; RED BLOOD CELLS 20-30 /HPF (0-5); UCUL ADDED? NO; WHITE BLOOD CELLS 0-5 /HPF (0-5)
[2018-02-23] VITALS (23 sets, daily range): BP systolic 92–118; BP diastolic 62–87
[2018-02-23 05:50] LABS: BASOPHIL (%) 0 % (0-1); EOSINOPHIL (%) 0 % (0-5); HEMATOCRIT 32.7 % (38.0-50.0); HEMOGLOBIN 9.6 G/DL (12.5-16.6); IMMATURE GRANULOCYTE (%) 0.7 % (0.0-0.7); LYMPHOCYTE (%) 1.6 % (15-42); LYMPHOCYTE COUNT 0.2 K/uL (1.0-2.8); MCH 23.9 PG (29.0-34.0); MCHC 29.4 G/DL (30.0-36.0); MCV 81.3 FL (86-99); MONOCYTE (%) 6.2 % (3-12); MONOCYTE COUNT 0.7 K/uL (0-0.8); NEUTROPHIL (%) 91.5 % (45-76); NEUTROPHIL COUNT 10.6 K/uL (1.8-6.4); NRBC (%) 0.3 /100 WBC (0-0); PLATELET COUNT 296 K/uL (156-360); RBC DIS.WIDTH-CV 19.5 % (11.8-14.6); RBC DIS.WIDTH-SD 55.6 % (39-53); RED BLOOD COUNT 4.02 M/uL (4.00-5.50); WHITE BLOOD COUNT 11.5 K/uL (4.1-10.2)
[2018-02-23 06:59] LABS: CHLORIDE 103 MEQ/L (99-109); CREATININE 1.6 MG/DL (0.6-1.3); GFR ESTIMATE (CALCULATED) 57 mL/min/ (58.99-99999); GLUCOSE 214 mg/dL (70-99); MAGNESIUM 2.5 mg/dl (1.3-2.7); PHOSPHORUS 3.9 mg/dL (2.5-4.9); POTASSIUM 4.2 MEQ/L (3.7-5.4); SODIUM 149 MEQ/L (136-147); UREA NITROGEN (BUN) 55 mg/dL (9-23)
[2018-02-24] VITALS (22 sets, daily range): BP systolic 96–117; BP diastolic 70–87
[2018-02-24 06:19] LABS: BASOPHIL (%) 0.1 % (0-1); EOSINOPHIL (%) 0 % (0-5); HEMATOCRIT 33.7 % (38.0-50.0); HEMOGLOBIN 9.8 G/DL (12.5-16.6); IMMATURE GRANULOCYTE (%) 0.8 % (0.0-0.7); LYMPHOCYTE (%) 1.3 % (15-42); LYMPHOCYTE COUNT 0.2 K/uL (1.0-2.8); MCH 23.9 PG (29.0-34.0); MCHC 29.1 G/DL (30.0-36.0); MCV 82.2 FL (86-99); MONOCYTE (%) 5.9 % (3-12); MONOCYTE COUNT 0.8 K/uL (0-0.8); NEUTROPHIL (%) 91.9 % (45-76); NEUTROPHIL COUNT 12.4 K/uL (1.8-6.4); NRBC (%) 0.1 /100 WBC (0-0); PLATELET COUNT 295 K/uL (156-360); RBC DIS.WIDTH-CV 19.8 % (11.8-14.6); RBC DIS.WIDTH-SD 56.3 % (39-53); WHITE BLOOD COUNT 13.5 K/uL (4.1-10.2)
[2018-02-24 06:42] LABS: CHLORIDE 103 MEQ/L (99-109); CREATININE 1.5 MG/DL (0.6-1.3); GFR ESTIMATE (CALCULATED) > 59 mL/min/ (58.99-99999); GLUCOSE 249 mg/dL (70-99); MAGNESIUM 2.6 mg/dl (1.3-2.7); PHOSPHORUS 3.5 mg/dL (2.5-4.9); POTASSIUM 4.3 MEQ/L (3.7-5.4); SODIUM 152 MEQ/L (136-147); UREA NITROGEN (BUN) 61 mg/dL (9-23)
[2018-02-25] VITALS (24 sets, daily range): BP systolic 91–119; BP diastolic 66–91
[2018-02-25 04:54] LABS: BASOPHIL (%) 0.1 % (0-1); EOSINOPHIL (%) 0 % (0-5); HEMATOCRIT 34.5 % (38.0-50.0); HEMOGLOBIN 10.3 G/DL (12.5-16.6); LYMPHOCYTE (%) 1.4 % (15-42); LYMPHOCYTE COUNT 0.2 K/uL (1.0-2.8); MCH 24.3 PG (29.0-34.0); MCHC 29.9 G/DL (30.0-36.0); MCV 81.6 FL (86-99); MONOCYTE (%) 3.5 % (3-12); MONOCYTE COUNT 0.5 K/uL (0-0.8); NEUTROPHIL COUNT 14.4 K/uL (1.8-6.4); PLATELET COUNT 279 K/uL (156-360); RBC DIS.WIDTH-CV 19.7 % (11.8-14.6); RBC DIS.WIDTH-SD 54.6 % (39-53); RED BLOOD COUNT 4.23 M/uL (4.00-5.50); WHITE BLOOD COUNT 15.3 K/uL (4.1-10.2)
[2018-02-25 05:03] LABS: CHLORIDE 102 mEq/L (99-109); POTASSIUM 4.2 mEq/L (3.7-5.4); SODIUM 150 mEq/L (136-147)
[2018-02-25 05:05] LABS: GLUCOSE 275 mg/dL (70-99)
[2018-02-25 05:07] LABS: MAGNESIUM 2.4 mg/dL (1.3-2.7)
[2018-02-25 05:09] LABS: CREATININE 1.4 mg/dL (0.6-1.3); GFR ESTIMATE (CALCULATED) > 59 mL/min/ (58.99-99999); PHOSPHORUS 3.9 mg/dL (2.5-4.9)
[2018-02-25 05:10] LABS: UREA NITROGEN (BUN) 68 mg/dL (9-23)
[2018-02-26] VITALS (24 sets, daily range): BP systolic 101–127; BP diastolic 69–87
[2018-02-26 05:37] LABS: BASOPHIL (%) 0.1 % (0-1); EOSINOPHIL (%) 0 % (0-5); HEMATOCRIT 34.6 % (38.0-50.0); HEMOGLOBIN 10.1 G/DL (12.5-16.6); IMMATURE GRANULOCYTE (%) 0.8 % (0.0-0.7); LYMPHOCYTE COUNT 0.2 K/uL (1.0-2.8); MCH 23.9 PG (29.0-34.0); MCHC 29.2 G/DL (30.0-36.0); MONOCYTE (%) 3.2 % (3-12); MONOCYTE COUNT 0.5 K/uL (0-0.8); NEUTROPHIL (%) 94.9 % (45-76); NEUTROPHIL COUNT 14.9 K/uL (1.8-6.4); PLATELET COUNT 273 K/uL (156-360); RBC DIS.WIDTH-CV 19.8 % (11.8-14.6); RBC DIS.WIDTH-SD 54.9 % (39-53); RED BLOOD COUNT 4.22 M/uL (4.00-5.50); WHITE BLOOD COUNT 15.7 K/uL (4.1-10.2)
[2018-02-26 06:09] LABS: CHLORIDE 100 MEQ/L (99-109); CREATININE 1.4 MG/DL (0.6-1.3); GFR ESTIMATE (CALCULATED) > 59 mL/min/ (58.99-99999); GLUCOSE 269 mg/dL (70-99); MAGNESIUM 2.7 mg/dl (1.3-2.7); POTASSIUM 4.4 MEQ/L (3.7-5.4); SODIUM 151 MEQ/L (136-147); UREA NITROGEN (BUN) 64 mg/dL (9-23)
[2018-02-27] VITALS (23 sets, daily range): BP systolic 91–126; BP diastolic 64–96
[2018-02-27 05:55] LABS: BASOPHIL (%) 0.1 % (0-1); EOSINOPHIL (%) 0 % (0-5); HEMATOCRIT 35.3 % (38.0-50.0); HEMOGLOBIN 10.4 G/DL (12.5-16.6); IMMATURE GRANULOCYTE (%) 0.7 % (0.0-0.7); LYMPHOCYTE (%) 1.3 % (15-42); LYMPHOCYTE COUNT 0.2 K/uL (1.0-2.8); MCHC 29.5 G/DL (30.0-36.0); MCV 81.5 FL (86-99); MONOCYTE (%) 3.8 % (3-12); MONOCYTE COUNT 0.6 K/uL (0-0.8); NEUTROPHIL (%) 94.1 % (45-76); NEUTROPHIL COUNT 15.3 K/uL (1.8-6.4); PLATELET COUNT 262 K/uL (156-360); RBC DIS.WIDTH-CV 19.8 % (11.8-14.6); RBC DIS.WIDTH-SD 55.6 % (39-53); RED BLOOD COUNT 4.33 M/uL (4.00-5.50); WHITE BLOOD COUNT 16.3 K/uL (4.1-10.2)
[2018-02-27 06:23] LABS: CHLORIDE 100 MEQ/L (99-109); CREATININE 1.2 MG/DL (0.6-1.3); GFR ESTIMATE (CALCULATED) > 59 mL/min/ (58.99-99999); GLUCOSE 256 mg/dL (70-99); MAGNESIUM 2.7 mg/dl (1.3-2.7); PHOSPHORUS 4.3 mg/dL (2.5-4.9); POTASSIUM 4.2 MEQ/L (3.7-5.4); SODIUM 149 MEQ/L (136-147); UREA NITROGEN (BUN) 64 mg/dL (9-23)
[2018-02-27 06:24] LABS: CARBON DIOXIDE (BICARBONATE) > 40.0 MEQ/L (20-31)
[2018-02-28] VITALS (24 sets, daily range): BP systolic 94–129; BP diastolic 63–93
[2018-02-28 06:04] LABS: BASOPHIL (%) 0.1 % (0-1); EOSINOPHIL (%) 0 % (0-5); HEMATOCRIT 36.8 % (38.0-50.0); HEMOGLOBIN 10.8 G/DL (12.5-16.6); IMMATURE GRANULOCYTE (%) 0.5 % (0.0-0.7); LYMPHOCYTE (%) 0.9 % (15-42); LYMPHOCYTE COUNT 0.2 K/uL (1.0-2.8); MCHC 29.3 G/DL (30.0-36.0); MCV 81.8 FL (86-99); MONOCYTE (%) 2.9 % (3-12); MONOCYTE COUNT 0.5 K/uL (0-0.8); NEUTROPHIL (%) 95.6 % (45-76); NEUTROPHIL COUNT 17.5 K/uL (1.8-6.4); PLATELET COUNT 261 K/uL (156-360); RBC DIS.WIDTH-CV 19.8 % (11.8-14.6); RBC DIS.WIDTH-SD 55.6 % (39-53); WHITE BLOOD COUNT 18.3 K/uL (4.1-10.2)
[2018-02-28 06:26] LABS: CHLORIDE 101 MEQ/L (99-109); GFR ESTIMATE (CALCULATED) > 59 mL/min/ (58.99-99999); GLUCOSE 232 mg/dL (70-99); MAGNESIUM 2.8 mg/dl (1.3-2.7); PHOSPHORUS 4.5 mg/dL (2.5-4.9); POTASSIUM 4.4 MEQ/L (3.7-5.4); SODIUM 149 MEQ/L (136-147); UREA NITROGEN (BUN) 62 mg/dL (9-23)
[2018-03-01] VITALS (23 sets, daily range): BP systolic 94–118; BP diastolic 59–83
[2018-03-01 05:53] LABS: BASOPHIL (%) 0.1 % (0-1); EOSINOPHIL (%) 0 % (0-5); HEMATOCRIT 36.9 % (38.0-50.0); HEMOGLOBIN 10.7 G/DL (12.5-16.6); IMMATURE GRANULOCYTE (%) 0.7 % (0.0-0.7); LYMPHOCYTE (%) 0.8 % (15-42); LYMPHOCYTE COUNT 0.2 K/uL (1.0-2.8); MCH 23.8 PG (29.0-34.0); MCV 82.2 FL (86-99); MONOCYTE (%) 3.7 % (3-12); MONOCYTE COUNT 0.7 K/uL (0-0.8); NEUTROPHIL (%) 94.7 % (45-76); NEUTROPHIL COUNT 16.7 K/uL (1.8-6.4); PLATELET COUNT 236 K/uL (156-360); RBC DIS.WIDTH-CV 19.9 % (11.8-14.6); RBC DIS.WIDTH-SD 55.8 % (39-53); RED BLOOD COUNT 4.49 M/uL (4.00-5.50); WHITE BLOOD COUNT 17.7 K/uL (4.1-10.2)
[2018-03-01 06:15] LABS: CHLORIDE 101 MEQ/L (99-109); GFR ESTIMATE (CALCULATED) > 59 mL/min/ (58.99-99999); GLUCOSE 205 mg/dL (70-99); MAGNESIUM 2.8 mg/dl (1.3-2.7); PHOSPHORUS 4.9 mg/dL (2.5-4.9); POTASSIUM 4.4 MEQ/L (3.7-5.4); SODIUM 148 MEQ/L (136-147); UREA NITROGEN (BUN) 60 mg/dL (9-23)
[2018-03-02] VITALS (16 sets, daily range): BP systolic 94–124; BP diastolic 66–84
[2018-03-02 05:29] LABS: BASOPHIL (%) 0.1 % (0-1); EOSINOPHIL (%) 0 % (0-5); HEMATOCRIT 36.1 % (38.0-50.0); HEMOGLOBIN 10.5 G/DL (12.5-16.6); IMMATURE GRANULOCYTE (%) 0.6 % (0.0-0.7); LYMPHOCYTE (%) 0.9 % (15-42); LYMPHOCYTE COUNT 0.1 K/uL (1.0-2.8); MCH 23.9 PG (29.0-34.0); MCHC 29.1 G/DL (30.0-36.0); MONOCYTE COUNT 0.6 K/uL (0-0.8); NEUTROPHIL (%) 94.4 % (45-76); NEUTROPHIL COUNT 13.9 K/uL (1.8-6.4); PLATELET COUNT 210 K/uL (156-360); RBC DIS.WIDTH-CV 19.9 % (11.8-14.6); RBC DIS.WIDTH-SD 55.8 % (39-53); WHITE BLOOD COUNT 14.7 K/uL (4.1-10.2)
[2018-03-02 05:56] LABS: CHLORIDE 99 MEQ/L (99-109); CREATININE 0.9 MG/DL (0.6-1.3); GFR ESTIMATE (CALCULATED) > 59 mL/min/ (58.99-99999); GLUCOSE 218 mg/dL (70-99); POTASSIUM 4.3 MEQ/L (3.7-5.4); SODIUM 145 MEQ/L (136-147); UREA NITROGEN (BUN) 55 mg/dL (9-23)
[2018-03-03] VITALS (19 sets, daily range): BP systolic 92–119; BP diastolic 61–86
[2018-03-03 05:43] LABS: BASOPHIL (%) 0.1 % (0-1); EOSINOPHIL (%) 0 % (0-5); HEMATOCRIT 36.2 % (38.0-50.0); HEMOGLOBIN 10.6 G/DL (12.5-16.6); IMMATURE GRANULOCYTE (%) 0.6 % (0.0-0.7); LYMPHOCYTE (%) 1.2 % (15-42); LYMPHOCYTE COUNT 0.2 K/uL (1.0-2.8); MCH 24.1 PG (29.0-34.0); MCHC 29.3 G/DL (30.0-36.0); MCV 82.3 FL (86-99); MONOCYTE (%) 3.7 % (3-12); MONOCYTE COUNT 0.5 K/uL (0-0.8); NEUTROPHIL (%) 94.4 % (45-76); NEUTROPHIL COUNT 12.2 K/uL (1.8-6.4); PLATELET COUNT 191 K/uL (156-360); RBC DIS.WIDTH-CV 19.9 % (11.8-14.6); RBC DIS.WIDTH-SD 55.1 % (39-53); WHITE BLOOD COUNT 12.9 K/uL (4.1-10.2)
[2018-03-03 06:08] LABS: CHLORIDE 97 MEQ/L (99-109); CREATININE 0.8 MG/DL (0.6-1.3); GFR ESTIMATE (CALCULATED) > 59 mL/min/ (58.99-99999); GLUCOSE 266 mg/dL (70-99); POTASSIUM 4.5 MEQ/L (3.7-5.4); SODIUM 143 MEQ/L (136-147); UREA NITROGEN (BUN) 54 mg/dL (9-23)
[2018-03-04] VITALS (22 sets, daily range): BP systolic 91–119; BP diastolic 62–86
[2018-03-05] VITALS (15 sets, daily range): BP systolic 88–105; BP diastolic 62–89
[2018-03-06] VITALS (15 sets, daily range): BP systolic 85–110; BP diastolic 59–89
[2018-03-06 06:54] LABS: HEMATOCRIT 35.2 % (38.0-50.0); HEMOGLOBIN 10.8 G/DL (12.5-16.6); MCH 24.6 PG (29.0-34.0); MCHC 30.7 G/DL (30.0-36.0); MCV 80.2 FL (86-99); PLATELET COUNT 184 K/uL (156-360); RBC DIS.WIDTH-CV 20.8 % (11.8-14.6); RED BLOOD COUNT 4.39 M/uL (4.00-5.50); WHITE BLOOD COUNT 10.9 K/uL (4.1-10.2)
[2018-03-06 07:26] LABS: CHLORIDE 98 MEQ/L (99-109); CREATININE 0.8 MG/DL (0.6-1.3); GFR ESTIMATE (CALCULATED) > 59 mL/min/ (58.99-99999); GLUCOSE 127 mg/dL (70-99); POTASSIUM 3.7 MEQ/L (3.7-5.4); SODIUM 141 MEQ/L (136-147); UREA NITROGEN (BUN) 48 mg/dL (9-23)
[2018-03-07] VITALS (13 sets, daily range): BP systolic 86–106; BP diastolic 62–75
[2018-03-08] VITALS (13 sets, daily range): BP systolic 84–105; BP diastolic 61–75
[2018-03-08 05:45] LABS: HEMATOCRIT 34.6 % (38.0-50.0); HEMOGLOBIN 10.6 G/DL (12.5-16.6); MCH 24.9 PG (29.0-34.0); MCHC 30.6 G/DL (30.0-36.0); MCV 81.2 FL (86-99); RBC DIS.WIDTH-CV 21.5 % (11.8-14.6); RBC DIS.WIDTH-SD 60.8 % (39-53); RED BLOOD COUNT 4.26 M/uL (4.00-5.50); WHITE BLOOD COUNT 11.4 K/uL (4.1-10.2)
[2018-03-08 05:54] LABS: CHLORIDE 100 MEQ/L (99-109); CREATININE 0.8 MG/DL (0.6-1.3); GFR ESTIMATE (CALCULATED) > 59 mL/min/ (58.99-99999); GLUCOSE 116 mg/dL (70-99); POTASSIUM 3.9 MEQ/L (3.7-5.4); SODIUM 141 MEQ/L (136-147); UREA NITROGEN (BUN) 41 mg/dL (9-23)
[2018-03-08 05:55] LABS: ANISOCYTOSIS 1+; BASOPHIL (%) 0.1 % (0-1); EOSINOPHIL (%) 0.4 % (0-5); IMMATURE GRANULOCYTE (%) 0.4 % (0.0-0.7); LYMPHOCYTE (%) 4.8 % (15-42); LYMPHOCYTE COUNT 0.6 K/uL (1.0-2.8); MICROCYTOSIS 1+; MONOCYTE (%) 4.1 % (3-12); MONOCYTE COUNT 0.5 K/uL (0-0.8); NEUTROPHIL (%) 90.2 % (45-76); NEUTROPHIL COUNT 10.3 K/uL (1.8-6.4); OVALOCYTES 1+; PLAT.SUFFICIENCY ADEQUATE; PLATELET COUNT 145 K/uL (156-360); POIKILOCYTOSIS 1+
== END 2018-03-08 15:30 | DRG 846 ==
LOC: 5EAST → ENRESERV 15:49 → 5EAST 02-12 08:09 → 4WEST 02-12 08:25 → 5EAST 02-12 08:25 → ENRESERV 02-14 17:44 → 5EAST 02-14 17:44 → ENRESERV 02-14 17:54 → 4WEST 02-14 17:55
PROVIDERS: Internal Medicine Critical Care Medicine; Internal Medicine Hematology & Oncology; Specialist; Surgery
DX: Z51.11 Encounter for antineoplastic chemotherapy (principal); C77.0 Secondary and unspecified malignant neoplasm of lymph nodes of head, face and neck; C09.9 Malignant neoplasm of tonsil, unspecified; C77.2 Secondary and unspecified malignant neoplasm of intra-abdominal lymph nodes; C77.1 Secondary and unspecified malignant neoplasm of intrathoracic lymph nodes; J96.01 Acute respiratory failure with hypoxia; J44.0 Chronic obstructive pulmonary disease with (acute) lower respiratory infection; J18.9 Pneumonia, unspecified organism; Z51.5 Encounter for palliative care; C79.51 Secondary malignant neoplasm of bone; I87.8 Other specified disorders of veins; K21.9 Gastro-esophageal reflux disease without esophagitis; J90 Pleural effusion, not elsewhere classified; J81.0 Acute pulmonary edema; I08.3 Combined rheumatic disorders of mitral, aortic and tricuspid valves; E46 Unspecified protein-calorie malnutrition; J98.01 Acute bronchospasm; E87.0 Hyperosmolality and hypernatremia; E11.9 Type 2 diabetes mellitus without complications; I27.20 Pulmonary hypertension, unspecified; R00.0 Tachycardia, unspecified; Z66 Do not resuscitate
CPT/HCPCS: 36600; 71045; 71250; 80048; 80048 91; 80053; 80202; 81003; 82310; 82803; 82948; 83605; 83735; 83880; 84100; 85025; 85027; 85610; 85730; 86850; 86900; 86901; 87040; 87070; 87106; 87205; 87641; 93005; 93306; 94002; 94003; 94640; 94640 76; 94760; 94799; C1752; C1894; J0690; J1200; J1644; J1650; J1815; J1940; J2250; J2543; J2704; J2920; J3010; J3370; J7030; J7040; J7050; J7120; S0020